=== PATIENT | female | born 1965 | race Caucasian/White ===

== ENCOUNTER 2016-07-03 16:02 | Emergency (ER) | payer MEDICARE, OTHER ==
[2016-07-03 16:44] VITALS: BP 139/92
[2016-07-03] MEDS ORDERED: NAPROXEN 250 MG TABLET PO ONE (19:25)
--- NOTE | 2016-07-03 19:27 | ER Document Report ---
HPI - HPI Patient complains to provider of: left wrist pain Onset: Other - 10 days Onset/Duration: Persistent Quality of pain: Sharp Pain Level: 4 Context: Patient complains of dorsal left wrist pain for the past 10 days that is worse with flexion or extension of wrist. Patient is able to supinate and pronate wrist without pain. Patient states pain radiates into her left thumb, second and third fingers. Patient denies any injury. Patient is right-hand dominant. Patient saw her primary doctor about this last week and has a appointment with her orthopedic doctor on 07/17/2016. Associated Symptoms: Other - Left wrist and hand pain. denies: Fever Exacerbated by: Movement Relieved by: Denies Similar symptoms previously: No Recently seen / treated by doctor: Yes - ROS ROS below otherwise negative: Yes Systems Reviewed and Negative: Yes All other systems reviewed and negative - DERM Skin Color: Normal Past Medical History - General Information source: Patient - Social History Smoking Status: Current Every Day Smoker Drug Abuse: None Occupation: none Family History: Arthritis, CVA, DM, Hyperlipidemia, Hypertension, Malignancy, Thyroid Disfunction Patient has suicidal ideation: No Patient has homicidal ideation: No - Medical History Medical History: Other - Chronic regional pain syndrome - Past Medical History Cardiac Medical History: Reports: Hx Hypertension Pulmonary Medical History: Reports: Hx Bronchitis, Hx Pneumonia Neurological Medical History: Reports: Hx Migraine Renal/ Medical History: Reports: Hx Kidney Stones. Denies: Hx Peritoneal Dialysis Musculoskeltal Medical History: Reports Hx Musculoskeletal Deformity, Reports Hx Musculoskeletal Trauma, Reports Other - Thoracic outlet syndrome Traumatic Medical History: Reports: Hx Fractures - Finger, Hx Pneumothorax - During surgery Past Surgical History: Reports: Hx Hysterectomy, Hx Orthopedic Surgery - Spinal fusion cervical, discectomy L5-S1, Other - Removal of muscle ribs due to thoracic outlet syndrome chest tube - Immunizations Immunizations up to date: Yes Hx Diphtheria, Pertussis, Tetanus Vaccination: Yes Vertical Provider Document - CONSTITUTIONAL Agree With Documented VS: Yes Exam Limitations: No Limitations General Appearance: WD/WN, No Apparent Distress - INFECTION CONTROL TRAVEL OUTSIDE OF THE [place] IN LAST 30 DAYS: No - HEENT HEENT: Atraumatic, Normocephalic - NECK Neck: Normal Inspection, Supple, Other - No cervical midline tenderness, step- off or deformity - RESPIRATORY Respiratory: Breath Sounds Normal, No Respiratory Distress, Chest Non-Tender O2 Sat by Pulse Oximetry: 100 - CARDIOVASCULAR Cardiovascular: Regular Rate, Regular Rhythm, No Murmur Pulses: Normal: Radial - BACK Back: Normal Inspection - MUSCULOSKELETAL/EXTREMETIES Musculoskeletal/Extremeties: MAEW, Tender - Left dorsal wrist tenderness over renal aspect of wrist. Small area of edema, normal skin color and temperature overlying joint. Pain reproduced with flexion and extension of wrist. No tendon deficit, no concern for tenosynovitis, Edema. negative: Eccymosis - NEURO Level of Consciousness: Awake, Alert, Appropriate Motor/Sensory: No Motor Deficit, No Sensory Deficit - DERM Integumentary: Warm, Dry, No Rash Course - Re-evaluation Re-evalutation: 07/03/16 19:[address] Ford . Patient presentation and management. Does not recommend any additional studies at this time, recommends NSAIDs immobilization and planned follow-up with orthopedic doctor. - Vital Signs Vital signs: Temp Pulse Resp BP Pulse Ox 98.4 F 96 18 139/92 H 100 07/03/16 16:42 07/03/16 16:42 07/03/16 16:42 07/03/16 16:42 07/03/16 16:42 Discharge - Discharge Clinical Impression: Wrist pain, left, Tendonitis, Hand pain, left Condition: Stable Disposition: HOME, SELF-CARE Instructions: Tendonitis ([facility]), Anti-Inflammatory Medication ([facility]) Additional Instructions: Return immediately for any new or worsening symptoms Followup with your primary care provider, call tomorrow to make a followup appointment Continue to wear your splint her symptoms Follow-up with your orthopedic doctor as planned Prescriptions: Naproxen [Naprosyn 250 Nmg Tablet] 1 tab PO BID #14 tablet Referrals: JORDAN GUERRERO MD [Primary Care Provider] - Follow up as needed
== END 2016-07-03 19:32 | disposition home or self-care (01) ==
LOC: ER 16:02
DX: M77.9 Enthesopathy, unspecified (principal); M25.532 Pain in left wrist; M79.642 Pain in left hand; F17.200 Nicotine dependence, unspecified, uncomplicated; I10 Essential (primary) hypertension
CPT/HCPCS: 99283; A9270

== ENCOUNTER 2016-08-07 18:29 | Emergency (ER) | payer MEDICARE, OTHER ==
[2016-08-07] MEDS ORDERED: DIPH/PERTUSS(ACELL)/TETANUS VAC/PF 0.5 ML SYR (>=10YO) IM ONE (19:14)
--- NOTE | 2016-08-07 19:20 | ER Document Report ---
HPI - HPI Patient complains to provider of: bilateral zuñiga pain Onset: Just prior to arrival Onset/Duration: Sudden Quality of pain: Achy Severity: Moderate Pain Level: 3 Context: Patient presents to the emergency department with complaints of bilateral zuñiga pain. Patient reports she fell off of a trailer step and slammed her zuñiga. She reports pain when she is walking. Reports left is worse than right. Tetanus is not up-to-date. Associated Symptoms: None Exacerbated by: Walking Relieved by: Denies Similar symptoms previously: No Recently seen / treated by doctor: No - DERM Skin Color: Normal Past Medical History - General Information source: Patient Last Menstrual Period: hyst - Social History Smoking Status: Current Every Day Smoker Cigarette use (# per day): Yes Frequency of alcohol use: None Drug Abuse: None Family History: Arthritis, CVA, DM, Hyperlipidemia, Hypertension, Malignancy, Thyroid Disfunction Patient has suicidal ideation: No Patient has homicidal ideation: No - Past Medical History Cardiac Medical History: Reports: Hx Hypertension Pulmonary Medical History: Reports: Hx Bronchitis, Hx Pneumonia Neurological Medical History: Reports: Hx Migraine Renal/ Medical History: Reports: Hx Kidney Stones. Denies: Hx Peritoneal Dialysis Musculoskeltal Medical History: Reports Hx Musculoskeletal Deformity, Reports Hx Musculoskeletal Trauma Traumatic Medical History: Reports: Hx Fractures - Finger, Hx Pneumothorax - During surgery Past Surgical History: Reports: Hx Hysterectomy, Hx Orthopedic Surgery - Spinal fusion cervical, discectomy L5-S1, Other - Removal of muscle ribs due to thoracic outlet syndrome chest tube - Immunizations Immunizations up to date: Yes Hx Diphtheria, Pertussis, Tetanus Vaccination: Yes Vertical Provider Document - CONSTITUTIONAL Agree With Documented VS: Yes Exam Limitations: No Limitations General Appearance: WD/WN, No Apparent Distress - INFECTION CONTROL TRAVEL OUTSIDE OF THE [place] IN LAST 30 DAYS: No - HEENT HEENT: Atraumatic, Normocephalic - NECK Neck: Supple - RESPIRATORY Respiratory: No Respiratory Distress O2 Sat by Pulse Oximetry: 98 - CARDIOVASCULAR Cardiovascular: Regular Rate - MUSCULOSKELETAL/EXTREMETIES Musculoskeletal/Extremeties: MAEW, FROM, Tender - bilateral shins ttp, lacerations, skin avulsions noted to both shins, no active bleeding. - NEURO Level of Consciousness: Awake, Alert, Appropriate Motor/Sensory: No Motor Deficit - DERM Integumentary: Warm, Dry Adult Front & Back Diagram: 1 - laceration 2 - skin avulsion Course - Re-evaluation Re-evalutation: 08/07/16 19:18 pt is already taking oxycodone 20 mg QID for chronic thoracic outlet syndrome. She declines pain medication - Vital Signs Vital signs: Temp Pulse Resp BP Pulse Ox 98.4 F 96 16 142/108 H 98 08/07/16 18:32 08/07/16 18:32 08/07/16 18:32 08/07/16 18:32 08/07/16 18:32 - Diagnostic Test Radiology reviewed: Image reviewed, Reports reviewed - Negative bilateral shins Procedures - Immobilization BILATERAL ZUÑIGA Pre-Proc Neuro Vasc Exam: Normal Immobilizer type: Gilbert wrap Performed by: PCT Post-Proc Neuro Vasc Exam: Unchanged from pre-exam - Laceration/Wound Repair Left Leg Wound length (cm): 1 - irregular bilateral zuñiga lac/avulsions Wound's Depth, Shape: Superficial Laceration pre-procedure: Shur-Clens applied Wound Repaired With: Steri-strips Adult Front & Back picture: 1 - BILATERAL ZUÑIGA LACERATION/AVULSION COVERED WITH STERI STRIPS, GILBERT WRAP Discharge - Discharge Clinical Impression: Bilateral zuñiga pain, Elevated blood pressure reading Condition: Stable Disposition: HOME, SELF-CARE Instructions: Tetanus Immunization Given ([facility]), Care of Steri-Strip Closure ( [facility]), Gilbert Wrap ([facility]), Ice Packs ([facility]) Additional Instructions: *You have been treated for bilateral zuñiga pain with skin laceration, avulsion *Take tylenol or ibuprofen as indicated for pain *Monitor the site for signs of infection such as increasing pain, redness, swelling, warmth *Keep the area's clean *Follow up with a primary care provider within one week for recheck *Return to ED for signs of infection, worsening condition, changes, needs Monitor your blood pressure. Your blood pressure was elevated today. This may be because you were anxious, in pain or because you need medication. It is important to follow up with your primary care provider for full evaluation. Forms: Elevated Blood Pressure
--- NOTE | 2016-08-07 20:26 | RADIOLOGY REPORT (SQ) ---
EXAM DESCRIPTION: TIB FIB BILAT 2 VIEWS COMPLETED DATE/TIME: 08/07/2016 7:27 pm REASON FOR STUDY: 35-hit both shins against trailer COMPARISON: None. NUMBER OF VIEWS: 8 views TECHNIQUE: AP and lateral radiographic images acquired of the right and left tibia and fibula to inc lude the knee and ankle in at least one projection. LIMITATIONS: None. FINDINGS: MINERALIZATION: Normal. BONES: No acute fracture or dislocation. No worrisome bone lesions. SOFT TISSUES: No obvious swelling or foreign body. OTHER: No other significant finding. IMPRESSION: No evidence for acute fracture or dislocation. Other findings as noted above TECHNICAL DOCUMENTATION: JOB ID: [id number] 1964 [employer]- All Rights Reserved
[2016-08-07 20:45] VITALS: BP 128/71
== END 2016-08-07 20:45 | disposition home or self-care (01) ==
LOC: ER 18:29
DX: S81.812A Laceration without foreign body, left lower leg, initial encounter (principal); S81.801A Unspecified open wound, right lower leg, initial encounter; M79.662 Pain in left lower leg; M79.661 Pain in right lower leg; W10.8XXA Fall (on) (from) other stairs and steps, initial encounter; F17.210 Nicotine dependence, cigarettes, uncomplicated; I10 Essential (primary) hypertension; G54.0 Brachial plexus disorders; Z79.891 Long term (current) use of opiate analgesic
CPT/HCPCS: 90471; 90715; 99283

== ENCOUNTER 2016-11-30 21:36 | Emergency (ER) | payer MEDICARE, OTHER ==
[2016-11-30 23:21] LABS: APPEARANCE,URINE CLEAR; BILIRUBIN,URINE NEGATIVE (NEGATIVE); GLUCOSE, URINE NEGATIVE (NEGATIVE); KETONES,URINE NEGATIVE (NEGATIVE); LEUKOCYTE ESTERASE,URINE NEGATIVE (NEGATIVE); NITRITE,URINE NEGATIVE (NEGATIVE); PROTEIN,URINE NEGATIVE (NEGATIVE); URINE SPECIFIC GRAVITY 1.001; UROBILINOGEN,URINE NEGATIVE mg/dL (<2.0)
[2016-12-01 01:24] LABS: ABSOLUTE BASOPHILS # (AUTO) 0.1 10^3/uL (0.0-0.2); ABSOLUTE EOSINOPHILS # (AUTO) 0.3 10^3/uL (0.0-0.6); ABSOLUTE LYMPHOCYTES (AUTO) 2.5 10^3/uL (0.5-4.7); ABSOLUTE MONOCYTES (AUTO) 0.7 10^3/uL (0.1-1.4); ABSOLUTE NEUT (AUTO) 6.5 10^3/uL (1.7-8.2); HEMATOCRIT 41.3 % (36.0-47.0); HEMOGLOBIN 14.2 g/dL (12.0-15.5); HGB HCT DIFFERENCE 1.3; LYMPHOCYTES % (AUTO) 24.7 % (13-45); MEAN CORPUSCULAR HGB CONC 34.3 g/dL (32.0-36.0); MEAN CORPUSCULAR VOLUME 90 fl (80-97); MONOCYTES % (AUTO) 6.8 % (3-13); RED BLOOD COUNT 4.57 10^6/uL (3.72-5.28); RED CELL DISTRIBUTION WIDTH 13.8 % (11.5-14.0); SEGMENTED NEUTROPHILS % (AUTO) 64.5 % (42-78); WHITE BLOOD COUNT 10.1 10^3/uL (4.0-10.5)
[2016-12-01 01:36] LABS: ALANINE AMINOTRANSFERASE 39 U/L (9-52); ALBUMIN 4.7 g/dL (3.5-5.0); ALKALINE PHOSPHATASE 82 U/L (38-126); ANION GAP 12 (5-19); ASPARTATE AMINO TRANSFERASE 24 U/L (14-36); BILIRUBIN,DIRECT 0.3 mg/dL (0.0-0.4); BILIRUBIN,TOTAL 0.4 mg/dL (0.2-1.3); BLOOD UREA NITROGEN 9 mg/dL (7-20); CALCIUM 10.2 mg/dL (8.4-10.2); CARBON DIOXIDE 24 mmol/L (22-30); CHLORIDE 107 mmol/L (98-107); CREATININE RESULT 0.71 mg/dL (0.52-1.25); GLUCOSE 104 mg/dL (75-110); LIPASE 228.8 U/L (23-300); POTASSIUM 4.4 mmol/L (3.6-5.0); SODIUM 142.9 mmol/L (137-145); TOTAL PROTEIN 7.6 g/dL (6.3-8.2)
--- NOTE | 2016-12-01 03:23 | RADIOLOGY REPORT (SQ) ---
EXAM DESCRIPTION: U/S ABDOMEN LIMITED W/O DOP COMPLETED DATE/TIME: 12/01/2016 2:34 am REASON FOR STUDY: ruq pain COMPARISON: None. TECHNIQUE: Dynamic and static grayscale images acquired of the abdomen and recorded on PACS. Additio nal selected color Doppler and spectral images recorded. LIMITATIONS: None. FINDINGS: PANCREAS: No masses. Visualized pancreatic duct normal caliber. LIVER: No masses. Echotexture normal. LIVER VASCULATURE: Normal directional flow of the main portal vein and hepatic veins. GALLBLADDER: Gallstone(s) and sludge. No pericholecystic fluid. No wall thickening. ULTRASOUND-DETECTED TAVERAS'S SIGN: Negative. INTRAHEPATIC DUCTS AND COMMON DUCT: 1.0 cm diameter common duct. Intrahepatic ducts normal caliber. No filling defects. INFERIOR VENA CAVA: Normal flow. AORTA: Partially obscured. RIGHT KIDNEY: Normal size. Normal echogenicity. No solid or suspicious masses. No hydronephrosis. No calcifications. PERITONEAL AND RIGHT PLEURAL SPACE: No ascites or effusions. OTHER: No other significant findings. IMPRESSION: Nonspecific dilation of the common duct measures 1.0 cm in diameter ; no evidence of int rahepatic ductal dilation. Cholelithiasis. Negative sonographic Taveras's test. TECHNICAL DOCUMENTATION: JOB ID: [id number] [employer]- All Rights Reserved
[2016-12-01] MEDS ORDERED: HYDROCODONE/ACETAMINOPHEN 5-325 MG 6 TAB/DSPK PO PRN (03:42)
[2016-12-01] MEDS ORDERED: LIDOCAINE 5% (700 MG) TRANSDERMAL ADH..PATCH TP ONE (03:42)
--- NOTE | 2016-12-01 03:43 | ER Document Report ---
ED General - General Chief Complaint: Epigastric Pain Stated Complaint: FLANK PAIN Time Seen by Provider: 12/01/16 00:44 Notes: Patient is a 51-year-old female without past medical history who presents with 2 days of right upper quadrant and epigastric abdominal pain. Does describe this as a constant, dull, aching pain that is worsened by movement and eating. States that she has had a poor appetite today. Denies any history of similar symptoms in the past. Nothing has improved the pain. She has not seen a primary doctor regarding today's concerns. She has been nauseated but has not had any vomiting. Denies any fever or constitutional symptoms. Denies any known trauma to the area. She has no prior history of abdominal surgeries. No history of atrial fibrillation or vascular disease. TRAVEL OUTSIDE OF THE [place] IN LAST 30 DAYS: No - Related Data Allergies/Adverse Reactions: hydromorphone [From Dilaudid] Allergy (Verified 08/07/16 18:32) Sulfa (Sulfonamide Antibiotics) Allergy (Verified 08/07/16 18:32) Past Medical History - General Information source: Patient - Social History Smoking Status: Current Every Day Smoker Chew tobacco use (# tins/day): No Frequency of alcohol use: None Drug Abuse: None Lives with: Family Family History: Arthritis, CVA, DM, Hyperlipidemia, Hypertension, Malignancy, Thyroid Disfunction Patient has suicidal ideation: No Patient has homicidal ideation: No - Past Medical History Cardiac Medical History: Reports: Hx Hypertension Pulmonary Medical History: Reports: Hx Bronchitis, Hx Pneumonia Neurological Medical History: Reports: Hx Migraine Renal/ Medical History: Reports: Hx Kidney Stones. Denies: Hx Peritoneal Dialysis Musculoskeltal Medical History: Reports Hx Musculoskeletal Deformity, Reports Hx Musculoskeletal Trauma Traumatic Medical History: Reports: Hx Fractures - Finger, Hx Pneumothorax - During surgery Past Surgical History: Reports: Hx Hysterectomy, Hx Orthopedic Surgery - Spinal fusion cervical, discectomy L5-S1, Other - Removal of muscle ribs due to thoracic outlet syndrome chest tube - Immunizations Immunizations up to date: Yes Hx Diphtheria, Pertussis, Tetanus Vaccination: Yes Review of Systems - Review of Systems Notes: Constitutional: Negative for fever. HENT: Negative for sore throat. Eyes: Negative for visual changes. Cardiovascular: Negative for chest pain. Respiratory: Negative for shortness of breath. Gastrointestinal: Positive for abdominal pain and nausea Genitourinary: Negative for dysuria. Musculoskeletal: Negative for back pain. Skin: Negative for rash. Neurological: Negative for headaches, weakness or numbness. 10 point ROS negative except as marked above and in HPI. Physical Exam - Vital signs Vitals: Temp Pulse Resp BP Pulse Ox 98.8 F 109 H 20 143/95 H 98 11/30/16 22:32 11/30/16 22:32 11/30/16 22:32 11/30/16 22:32 11/30/16 22:32 Tachycardia is resolved at the time of my assessment with the rate at 92. Notes: PHYSICAL EXAMINATION: GENERAL: Appears moderately uncomfortable but no acute distress HEAD: Atraumatic, normocephalic. EYES: Pupils equal round and reactive to light, extraocular movements intact, sclera anicteric, conjunctiva are normal. ENT: nares patent, oropharynx clear without exudates. Moist mucous membranes. NECK: Normal range of motion, supple without lymphadenopathy LUNGS: Breath sounds clear to auscultation bilaterally and equal. No wheezes rales or rhonchi. HEART: Regular rate and rhythm without murmurs ABDOMEN: Soft, mild upper quadrant abdominal tenderness to palpation otherwise no focal abdominal tenderness, normoactive bowel sounds. No guarding, no rebound. No masses appreciated. EXTREMITIES: Normal range of motion, no pitting or edema. No cyanosis. NEUROLOGICAL: No focal neurological deficits. Moves all extremities spontaneously and on command. PSYCH: Normal mood, normal affect. SKIN: Warm, Dry, normal turgor, no rashes or lesions noted. Course - Re-evaluation Re-evalutation: 12/01/16 03:41 Patient presents clinical history and exam most consistent with symptomatic cholelithiasis. Patient has had progressive worsening of right upper quadrant pain worsened by eating but has been able to tolerate some oral intake. Vitals at time of arrival and on multiple reassessments remain non-concerning. Laboratories do not demonstrate a significant leukocytosis, LFT derangements, elevated bilirubin, alkaline phosphatase, or an elevated lipase. A right upper quadrant ultrasound does not demonstrate evidence of acute cholecystitis. Patient is able to tolerate oral intake. Based on exam and history do not suspect an acute pulmonary embolus, bowel obstruction, mesenteric ischemia, bowel perforation, ACS, or any acute alternative life-threatening pathology. at this time will discharge with return precautions and follow-up recommendations. Verbal discharge instructions given a the bedside and opportunity for questions given. Medication warnings reviewed. Patient is in agreement with this plan and has verbalized understanding of return precautions and the need for primary care follow-up in the next 24-72 hours. 12/01/16 03:41 - Vital Signs Vital signs: Temp Pulse Resp BP Pulse Ox 98.8 F 90 18 153/91 H 98 11/30/16 22:32 12/01/16 01:54 12/01/16 01:54 12/01/16 01:54 12/01/16 01:54 - Laboratory Result Diagrams: 12/01/16 01:13 12/01/16 01:13 - Diagnostic Test Radiology reviewed: Reports reviewed Discharge - Discharge Clinical Impression: Right upper quadrant abdominal pain Condition: Good Disposition: HOME, SELF-CARE Additional Instructions: You have gallstones that are causing your symptoms. Be sure to avoid fat containing foods until you follow-up with a surgeon to have the gallbladder removed as eating these foods will trigger your pain. Please return to the emergency department if you develop a fever greater than 100.4F, persistent vomiting, worsening of your pain, or any other symptoms that are worrisome to you. Referrals: KUMAR JANE MD [ACTIVE STAFF] - Follow up tomorrow
[2016-12-01] MEDS ORDERED: LIDOCAINE 2% VISCOUS SOLN 20 ML UDCUP PO ONE (03:48)
[2016-12-01] MEDS ORDERED: METOCLOPRAMIDE HCL ORAL SOLN 10 MG/10 ML UDCUP PO ONE (03:48)
[2016-12-01] MEDS ORDERED: MAG HYDROX/AL HYDROX/SIMETH SUSP 30 ML UDCUP PO ONE (03:48)
[2016-12-01 04:42] VITALS: BP 134/73
== END 2016-12-01 04:41 | disposition home or self-care (01) ==
LOC: ER 21:36
DX: R10.13 Epigastric pain (principal); R10.11 Right upper quadrant pain; F17.200 Nicotine dependence, unspecified, uncomplicated; I10 Essential (primary) hypertension; Z88.6 Allergy status to analgesic agent; Z88.2 Allergy status to sulfonamides; Z87.442 Personal history of urinary calculi; Z90.710 Acquired absence of both cervix and uterus; Z98.1 Arthrodesis status
CPT/HCPCS: 99284; 36415; 83690; 85025; 80053; 81001; 76705; J3490; A9270 ×2

== ENCOUNTER 2016-12-03 13:49 | Inpatient (IN) | payer MEDICARE, OTHER ==
[2016-12-03] MEDS ORDERED: ONDANSETRON HCL INJ/PF 4 MG/2 ML SDV IV ONE ×2 (14:07→15:32)
[2016-12-03] MEDS ORDERED: MORPHINE SULFATE 10 MG/ML INJ IV ONE ×3 (14:07→19:24)
--- NOTE | 2016-12-03 14:09 | ER Document Report ---
ED Medical Screen (RME) - General Chief Complaint: Abdominal Pain Stated Complaint: STOMACH PAIN Time Seen by Provider: 12/03/16 14:00 Mode of Arrival: Wheelchair Information source: Patient TRAVEL OUTSIDE OF THE [place] IN LAST 30 DAYS: No - HPI Patient complains to provider of: Abdominal pain Notes: 12/03/16 14:08 51-year-old female presents to the emergency room today complaining of upper abdominal pain that has been worsening over the past 4-5 days, she reports she was previously seen in this department and diagnosed with gallstones, she has an outpatient follow-up with the surgeon on Sunday, however her pain worsened significantly, she is unable to tolerate any p.o. intake, has not moved her bowels in at least 4-5 days as well - Related Data Allergies/Adverse Reactions: hydromorphone [From Dilaudid] Allergy (Verified 12/03/16 13:57) Sulfa (Sulfonamide Antibiotics) Allergy (Verified 12/03/16 13:57) Past Medical History - Social History Chew tobacco use (# tins/day): No Frequency of alcohol use: None Drug Abuse: None - Past Medical History Cardiac Medical History: Reports: Hx Hypertension Pulmonary Medical History: Reports: Hx Bronchitis, Hx Pneumonia Neurological Medical History: Reports: Hx Migraine Renal/ Medical History: Reports: Hx Kidney Stones. Denies: Hx Peritoneal Dialysis Musculoskeltal Medical History: Reports Hx Musculoskeletal Deformity, Reports Hx Musculoskeletal Trauma Traumatic Medical History: Reports: Hx Fractures - Finger, Hx Pneumothorax - During surgery Past Surgical History: Reports: Hx Hysterectomy, Hx Orthopedic Surgery - Spinal fusion cervical, discectomy L5-S1, Other - Removal of muscle ribs due to thoracic outlet syndrome chest tube - Immunizations Immunizations up to date: Yes Hx Diphtheria, Pertussis, Tetanus Vaccination: Yes Physical Exam - Vital signs Vitals: Temp Pulse Resp BP Pulse Ox 97.5 F 124 H 20 139/92 H 100 12/03/16 13:52 12/03/16 13:52 12/03/16 13:52 12/03/16 13:52 12/03/16 13:52 Course - Vital Signs Vital signs: Temp Pulse Resp BP Pulse Ox 97.5 F 124 H 20 139/92 H 100 12/03/16 13:52 12/03/16 13:52 12/03/16 13:52 12/03/16 13:52 12/03/16 13:52
[2016-12-03] MEDS: NORMAL SALINE 1000 ML 1,000 ML IV PRN ×2 (14:49→19:49)
[2016-12-03 15:10] LABS: ABSOLUTE BASOPHILS # (AUTO) 0.1 10^3/uL (0.0-0.2); ABSOLUTE EOSINOPHILS # (AUTO) 0.1 10^3/uL (0.0-0.6); ABSOLUTE LYMPHOCYTES (AUTO) 2.3 10^3/uL (0.5-4.7); ABSOLUTE MONOCYTES (AUTO) 0.8 10^3/uL (0.1-1.4); ABSOLUTE NEUT (AUTO) 8.9 10^3/uL (1.7-8.2); EOSINOPHILS % (AUTO) 1.2 % (0-6); HEMATOCRIT 46.4 % (36.0-47.0); HGB HCT DIFFERENCE 2.5; LYMPHOCYTES % (AUTO) 18.7 % (13-45); MEAN CORPUSCULAR HEMOGLOBIN 31.6 pg (27.0-33.4); MEAN CORPUSCULAR HGB CONC 35.1 g/dL (32.0-36.0); MEAN CORPUSCULAR VOLUME 90 fl (80-97); MONOCYTES % (AUTO) 6.6 % (3-13); RED BLOOD COUNT 5.14 10^6/uL (3.72-5.28); RED CELL DISTRIBUTION WIDTH 13.4 % (11.5-14.0); SEGMENTED NEUTROPHILS % (AUTO) 72.5 % (42-78); WHITE BLOOD COUNT 12.2 10^3/uL (4.0-10.5)
[2016-12-03 15:13] LABS: APPEARANCE,URINE SLIGHTLY-CLOUDY; BILIRUBIN,URINE NEGATIVE (NEGATIVE); GLUCOSE, URINE NEGATIVE (NEGATIVE); KETONES,URINE NEGATIVE (NEGATIVE); LEUKOCYTE ESTERASE,URINE NEGATIVE (NEGATIVE); NITRITE,URINE NEGATIVE (NEGATIVE); PROTEIN,URINE 30 mg/dL (NEGATIVE); URINE SPECIFIC GRAVITY 1.025; UROBILINOGEN,URINE NEGATIVE mg/dL (<2.0)
[2016-12-03 15:17] LABS: WBC,URINE RARE /HPF
--- NOTE | 2016-12-03 15:31 | ER Document Report ---
ED GI/ - General Mode of Arrival: Wheelchair Information source: Patient TRAVEL OUTSIDE OF THE [place] IN LAST 30 DAYS: No <JOSIAH PARRY - Last Filed: 12/03/16 15:42> <BEBETO MEDINA - Last Filed: 12/03/16 21:47> - General Chief Complaint: Abdominal Pain Stated Complaint: STOMACH PAIN Time Seen by Provider: 12/03/16 14:00 Notes: Patient is a 51 year old female presenting to the emergency department for abdominal pain and nausea since Sunday. Patient's last bowel movement was on Sunday11/27/2016. Patient states her pain has worsened. Patient also has had a lack of appetite. Patient's pain is located in her right upper quadrant and radiates across to the left side and down into her pelvic region. Patient states she took 2 suppositories with no relief. Patient was seen in the emergency department around 2:00 on 12/01/2016 for abdominal pain. At this time she had a soft abdomen that was mildly tender. Patient's ultrasound from this visit showed "Nonspecific dilation of the common duct measuring 1 cm in diameter; no evidence of intrahepatic ductal dilation. Cholelithiasis. Negative sonographic Taveras's test." Patient also had gallstones seen on a previous CT scan in the EMR. Patient received a Lidoderm patch, GI cocktail and [place] dispense pack while she was seen on 12/01/2018. Patient has a follow up appointment with a GI surgeon on Sunday. (JOSIAH PARRY) - Related Data Allergies/Adverse Reactions: hydromorphone [From Dilaudid] Allergy (Verified 12/03/16 13:57) Sulfa (Sulfonamide Antibiotics) Allergy (Verified 12/03/16 13:57) Past Medical History - General Information source: Patient - Social History Smoking Status: Current Every Day Smoker Chew tobacco use (# tins/day): No Smoking Education Provided: No Frequency of alcohol use: None Drug Abuse: None Family History: Arthritis, CVA, DM, Hyperlipidemia, Hypertension, Malignancy, Thyroid Disfunction Patient has suicidal ideation: No Patient has homicidal ideation: No - Past Medical History Cardiac Medical History: Reports: Hx Hypertension Pulmonary Medical History: Reports: Hx Bronchitis, Hx Pneumonia Neurological Medical History: Reports: Hx Migraine Renal/ Medical History: Reports: Hx Kidney Stones GI Medical History: Reports: Other - gallstones Musculoskeltal Medical History: Reports Hx Musculoskeletal Deformity, Reports Hx Musculoskeletal Trauma Traumatic Medical History: Reports: Hx Fractures - Finger, Hx Pneumothorax - During surgery Past Surgical History: Reports: Hx Hysterectomy, Hx Orthopedic Surgery - Spinal fusion cervical, discectomy L5-S1, Other - Removal of muscle ribs due to thoracic outlet syndrome chest tube - Immunizations Immunizations up to date: Yes Hx Diphtheria, Pertussis, Tetanus Vaccination: Yes <JOSIAH PARRY - Last Filed: 12/03/16 15:42> Review of Systems - Review of Systems Constitutional: No symptoms reported EENT: No symptoms reported Cardiovascular: No symptoms reported Respiratory: No symptoms reported Gastrointestinal: See HPI, Abdominal pain, Nausea, Constipation, Poor appetite, Poor fluid intake, Last bowel movement - 11/27/2016 Genitourinary: No symptoms reported Female Genitourinary: No symptoms reported Musculoskeletal: No symptoms reported Skin: No symptoms reported Hematologic/Lymphatic: No symptoms reported Neurological/Psychological: No symptoms reported -: Yes All other systems reviewed and negative <SOHANJOSIAH - Last Filed: 12/03/16 15:42> Physical Exam - Vital signs Interpretation: Normal <JOSIAH PARRY - Last Filed: 12/03/16 15:42> <BEBETO MEDINA - Last Filed: 12/03/16 21:47> - Vital signs Vitals: Temp Pulse Resp BP Pulse Ox 97.5 F 124 H 20 139/92 H 100 12/03/16 13:52 12/03/16 13:52 12/03/16 13:52 12/03/16 13:52 12/03/16 13:52 - Notes Notes: GENERAL: Alert, interacts well, appears uncomfortable. HEAD: Normocephalic, atraumatic. EYES: Appear normal. Pupils equal, round, and reactive to light. ENT: Moist mucus membranes, tongue midline. NECK: Full range of motion. Supple. Trachea midline. LUNGS: Clear to auscultation bilaterally, no wheezes, rales, or rhonchi. No respiratory distress. HEART: Regular rate and rhythm. No murmurs, gallops, or rubs. ABDOMEN: Soft, tenderness to palpate the right upper quadrant extending across to the left side and down towards the pelvic region. Non-distended. Normal bowel sounds. EXTREMITIES: Moves all 4 extremities spontaneously. Normal strength. No edema. NEUROLOGICAL: Alert and oriented x3. Normal speech. No focal neurological deficits. GCS 15. PSYCH: Normal affect, normal mood. SKIN: Warm, dry, normal turgor. No rashes or lesions noted. (JOSIAH PARRY) Course - Laboratory Result Diagrams: 12/03/16 14:37 12/03/16 14:37 <JOSIAH PARRY - Last Filed: 12/03/16 15:42> - Laboratory Result Diagrams: 12/03/16 14:37 12/03/16 15:50 - Diagnostic Test Radiology reviewed: Image reviewed, Reports reviewed - Acute abdominal series shows moderate constipation in the descending colon and splenic flexure. Gallbladder ultrasound shows gallstones, some gallbladder wall thickening now at 4 mm, trace pericholecystic fluid, positive Taveras's sign. This suggests that she is developing cholecystitis. - Consults Dr. Gonsalez Time consulted: 21:15 Consulted provider: will come to ER <BEBETO MEDINA - Last Filed: 12/03/16 21:47> - Re-evaluation Re-evalutation: 12/03/16 19:54 The patient was given an enema at her request. It really did not produce results, which I did not expect given that her constipation is in the right colon and splenic flexure region. (BEBETO MEDINA) - Vital Signs Vital signs: Temp Pulse Resp BP Pulse Ox 98.6 F 89 18 137/75 H 96 12/03/16 20:20 12/03/16 20:20 12/03/16 20:20 12/03/16 20:20 12/03/16 20:20 - Laboratory Laboratory results interpreted by me: 12/03/16 12/03/16 14:37 14:37 WBC 12.2 H Hgb 16.3 H D Absolute Neutrophils 8.9 H Urine Protein 30 H Urine Blood SMALL H Discharge <JOSIAH PARRY - Last Filed: 12/03/16 15:42> - Discharge Admitting Provider: Surgicalist Unit Admitted: Surgical Floor <BEBETO MEDINA - Last Filed: 12/03/16 21:47> - Discharge Clinical Impression: Constipation Cholecystitis with cholelithiasis Qualifiers: Cholelithiasis location: gallbladder Cholecystitis acuity: acute Biliary obstruction: without biliary obstruction Qualified Code(s): K80.00 - Calculus of gallbladder with acute cholecystitis without obstruction Chronic pain Qualifiers: Chronic pain type: chronic pain syndrome Qualified Code(s): G89.4 - Chronic pain syndrome Condition: Stable Disposition: ADMITTED INPATIENT Scribe Attestation: 12/03/16 17:27 I personally performed the services described in the documentation, reviewed and edited the documentation which was dictated to the scribe in my presence, and it accurately records my words and actions. (BEBETO MEDINA) Scribe Documentation - Scribe Written by Scribe:: Wilber Hernandez, 12/03/2016 1615 acting as scribe for :: Prosper <JOSIAH PARRY - Last Filed: 12/03/16 15:42>
[2016-12-03 15:32] LABS: HEMOGLOBIN 16.3 g/dL (12.0-15.5)
[2016-12-03] MEDS ORDERED: NORMAL SALINE 1000 ML 1,000 ML IV ONE (15:32)
[2016-12-03] MEDS ORDERED: METOCLOPRAMIDE HCL INJ/PF 10 MG/2 ML SDV IV ONE (15:39)
--- NOTE | 2016-12-03 15:58 | RADIOLOGY REPORT (SQ) ---
EXAM DESCRIPTION: ACUTE ABDOMEN SERIES COMPLETED DATE/TIME: 12/03/2016 3:00 pm REASON FOR STUDY: pain COMPARISON: CT abdomen pelvis 03/02/2016 NUMBER OF VIEWS: Three views. TECHNIQUE: Frontal chest, supine abdomen and upright abdomen radiographic images acquired. LIMITATIONS: None. FINDINGS: CHEST: Lungs clear of infiltrates. FREE AIR: None. No abnormal gas collections. BOWEL GAS PATTERN: Nonobstructive pattern. No dilated loops or air fluid levels. Moderate constipati on with stool in the ascending colon and splenic flexure. CALCIFICATIONS: No suspicious calcifications. HARDWARE: None in the abdomen. SOFT TISSUES: No gross mass or suggestion of organomegaly. BONES: No acute fracture. No worrisome bone lesions. OTHER: No other significant finding. IMPRESSION: NO RADIOGRAPHIC EVIDENCE FOR ACUTE ABDOMINAL DISEASE. Constipation TECHNICAL DOCUMENTATION: JOB ID: [id number] [employer]- All Rights Reserved
[2016-12-03 16:20] LABS: ALANINE AMINOTRANSFERASE 27 U/L (9-52); ALBUMIN 4.3 g/dL (3.5-5.0); ALKALINE PHOSPHATASE 87 U/L (38-126); ANION GAP 8 (5-19); ASPARTATE AMINO TRANSFERASE 17 U/L (14-36); BILIRUBIN,DIRECT 0.3 mg/dL (0.0-0.4); BILIRUBIN,TOTAL 0.5 mg/dL (0.2-1.3); BLOOD UREA NITROGEN 10 mg/dL (7-20); CALCIUM 10.1 mg/dL (8.4-10.2); CARBON DIOXIDE 28 mmol/L (22-30); CHLORIDE 103 mmol/L (98-107); CREATININE RESULT 0.69 mg/dL (0.52-1.25); GLUCOSE 97 mg/dL (75-110); LIPASE 76.3 U/L (23-300); POTASSIUM 4.4 mmol/L (3.6-5.0); SODIUM 139.4 mmol/L (137-145); TOTAL PROTEIN 7.1 g/dL (6.3-8.2)
[2016-12-03] MEDS ORDERED: MAGNESIUM CITRATE 296 ML BOTTLE PO ONE (16:30)
[2016-12-03] MEDS ORDERED: MINERAL OIL 30 ML UDCUP PR ONE (18:19)
--- NOTE | 2016-12-03 21:04 | RADIOLOGY REPORT (SQ) ---
EXAM DESCRIPTION: U/S ABDOMEN LIMITED W/O DOP COMPLETED DATE/TIME: 12/03/2016 8:49 pm REASON FOR STUDY: gallstones, worse pain COMPARISON: 12/01/2016 TECHNIQUE: Dynamic and static grayscale images acquired of the right upper quadrant and recorded on PACS. Additional selected color Doppler and spectral images recorded. LIMITATIONS: Study limited due to acoustical interference from fat or from air in the bowel. FINDINGS: PANCREAS: Parts or all of the pancreas poorly seen secondary to acoustical interference fr om fat or from air in the bowel. LIVER: Echotexture is coarse with increased echogenicity consistent with fatty infiltration. No mass es. LIVER VASCULATURE: Normal directional flow of the main portal vein and hepatic veins. GALLBLADDER: Multiple gall stones. Abnormal wall thickness, 4 mm. Trace pericholecystic fluid. ULTRASOUND-DETECTED ANTHONY'S SIGN: Positive INTRAHEPATIC DUCTS AND COMMON DUCT: CBD and intrahepatic ducts normal caliber. No filling defects. INFERIOR VENA CAVA: Normal flow. AORTA: No aneurysm. RIGHT KIDNEY: Normal size. Normal echogenicity. No solid or suspicious masses. No hydronephros is. No calcifications. PERITONEAL CAVITY AND RIGHT PLEURAL SPACE: No ascites or effusions. OTHER: No other significant finding. IMPRESSION: Multiple gall stones. Abnormal wall thickness, 4 mm. Trace pericholecystic fluid. ULTRASOUND-DETECTED ANTHONY'S SIGN: Positive FATTY LIVER. PANCREAS PARTIALLY OR COMPLETELY OBSCURED. TECHNICAL DOCUMENTATION: JOB ID: [id number] [employer]- All Rights Reserved
[2016-12-03 22:03] LABS: URINE BARBITURATES SCREEN NEGATIVE; URINE METHADONE SCREEN NEGATIVE; URINE OPIATES LOW UNCONFIRMED POSITIVE; URINE PHENCYCLIDINE SCREEN NEGATIVE
[2016-12-03] MEDS ORDERED: ACETAMINOPHEN 325 MG TABLET PO ONE (22:15)
[2016-12-03] MEDS ORDERED: NORMAL SALINE 1000 ML 1,000 ML IV PRN (22:23)
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
[2016-12-03] MEDS ORDERED: CEFAZOLIN 1 GM/D5W RTU 1 GM/50 ML RTUPB IV ONE (22:37)
--- NOTE | 2016-12-03 23:00 | EKG REPORT ---
SEVERITY:- BORDERLINE ECG - SINUS RHYTHM BORDERLINE T ABNORMALITIES, INFERIOR LEADS : Confirmed by: Williams Flores 03-Dec-2016 22:59:37
[2016-12-04] MEDS: ONDANSETRON HCL INJ/PF 4 MG/2 ML SDV IV PRN ×2 (00:08→08:08)
[2016-12-04] MEDS: NORMAL SALINE 1000 ML 1,000 ML IV PRN ×3 (00:08→20:42)
[2016-12-04] MEDS: MORPHINE SULFATE 10 MG/ML INJ IV PRN ×3 (02:30→10:30)
[2016-12-04 04:34] LABS: ABSOLUTE EOSINOPHILS # (AUTO) 0.1 10^3/uL (0.0-0.6); ABSOLUTE LYMPHOCYTES (AUTO) 2.1 10^3/uL (0.5-4.7); ABSOLUTE MONOCYTES (AUTO) 0.9 10^3/uL (0.1-1.4); ABSOLUTE NEUT (AUTO) 5.8 10^3/uL (1.7-8.2); BASOPHILS % (AUTO) 0.3 % (0-2); EOSINOPHILS % (AUTO) 1.4 % (0-6); HEMATOCRIT 38.1 % (36.0-47.0); HGB HCT DIFFERENCE 1.8; LYMPHOCYTES % (AUTO) 23.2 % (13-45); MEAN CORPUSCULAR HEMOGLOBIN 31.7 pg (27.0-33.4); MEAN CORPUSCULAR VOLUME 91 fl (80-97); MONOCYTES % (AUTO) 10.1 % (3-13); RED BLOOD COUNT 4.21 10^6/uL (3.72-5.28); RED CELL DISTRIBUTION WIDTH 13.8 % (11.5-14.0); WHITE BLOOD COUNT 8.9 10^3/uL (4.0-10.5)
[2016-12-04 04:38] LABS: HEMOGLOBIN 13.3 g/dL (12.0-15.5)
[2016-12-04 05:03] LABS: ALANINE AMINOTRANSFERASE 35 U/L (9-52); ALBUMIN 3.8 g/dL (3.5-5.0); ALKALINE PHOSPHATASE 81 U/L (38-126); ANION GAP 6 (5-19); ASPARTATE AMINO TRANSFERASE 17 U/L (14-36); BILIRUBIN,DIRECT 0.4 mg/dL (0.0-0.4); BILIRUBIN,TOTAL 0.5 mg/dL (0.2-1.3); BLOOD UREA NITROGEN 8 mg/dL (7-20); CALCIUM 9.3 mg/dL (8.4-10.2); CARBON DIOXIDE 27 mmol/L (22-30); CHLORIDE 107 mmol/L (98-107); CREATININE RESULT 0.61 mg/dL (0.52-1.25); GLUCOSE 107 mg/dL (75-110); LIPASE 515.4 U/L (23-300); POTASSIUM 4.3 mmol/L (3.6-5.0); SODIUM 140.1 mmol/L (137-145); TOTAL PROTEIN 6.4 g/dL (6.3-8.2)
--- NOTE | 2016-12-04 09:47 | PDOC PROGRESS REPORT ---
Subjective Progress Note for:: 12/04/16 Subjective:: Patient complaining of neck pain and back and abdominal pain. She receives narcotics on a regular basis. She is under pain management. Physical Exam Vital Signs: Temp Pulse Resp BP Pulse Ox 98.9 F 84 16 151/88 H 98 12/04/16 07:58 12/04/16 07:58 12/04/16 07:58 12/04/16 07:58 12/04/16 07:58 Intake & Output 12/03/16 12/04/16 12/05/16 06:59 06:59 06:59 Intake Total 0 Output Total 1500 Balance -1500 Weight 84.3 kg General appearance: PRESENT: mild distress - Has pain wherever she is pressed. GI/Abdominal exam: PRESENT: other - Operative scars consistent with previous panniculectomy. There is diffuse abdominal tenderness localized to the right upper quadrant Results Laboratory Results: 12/04/16 04:15 12/04/16 04:15 12/04/16 12/04/16 12/04/16 04:15 04:15 06:04 WBC 8.9 RBC 4.21 Hgb 13.3 D Hct 38.1 MCV 91 MCH 31.7 MCHC 35.0 RDW 13.8 Plt Count 226 Seg Neutrophils % 65.0 Lymphocytes % 23.2 Monocytes % 10.1 Eosinophils % 1.4 Basophils % 0.3 Absolute Neutrophils 5.8 Absolute Lymphocytes 2.1 Absolute Monocytes 0.9 Absolute Eosinophils 0.1 Absolute Basophils 0.0 Sodium 140.1 Potassium 4.3 Chloride 107 Carbon Dioxide 27 Anion Gap 6 BUN 8 Creatinine 0.61 Est GFR ( Amer) > 60 Est GFR (Non-Af Amer) > 60 Glucose 107 Calcium 9.3 Total Bilirubin 0.5 AST 17 ALT 35 Alkaline Phosphatase 81 Total Protein 6.4 Albumin 3.8 Lipase 515.4 H 515.4 H Impressions: Acute Abdomen Series 12/03/16 14:07 IMPRESSION: NO RADIOGRAPHIC EVIDENCE FOR ACUTE ABDOMINAL DISEASE. Constipation Abdomen Ultrasound 12/03/16 19:54 IMPRESSION: Multiple gall stones. Abnormal wall thickness, 4 mm. Trace pericholecystic fluid. ULTRASOUND-DETECTED ANTHONY'S SIGN: Positive FATTY LIVER. PANCREAS PARTIALLY OR COMPLETELY OBSCURED. Assessment & Plan - Diagnosis (1) Cholecystitis with cholelithiasis Qualifiers: Cholelithiasis location: gallbladder Cholecystitis acuity: acute Biliary obstruction: without biliary obstruction Qualified Code(s): K80.00 - Calculus of gallbladder with acute cholecystitis without obstruction Is this a current diagnosis for this admission?: Yes Plan: On physical examination, history, and the logic profile; slightly elevated lipase of uncertain significance Recommendation 1. We will proceed with laparoscopic cholecystectomy, possible open, 1 hour, [facility], general anesthesia. I reviewed the mechanics of the operation as well as an explanation of the risks benefits and alternatives including bleeding, infection, bile duct injury , need for additional surgery. I believe the patient understands and agrees to proceed 2. Patient may be a candidate for discharge home later today or tomorrow morning
[2016-12-04] MEDS ORDERED: BUPIVACAINE HCL 0.25 % INJ/PF (2.5 MG/1 ML) 30 ML VIAL ONE (10:33)
[2016-12-04] MEDS ORDERED: DEXAMETHASONE SOD PHOSPHATE INJ 4 MG/1 ML VIAL ONE (11:13)
[2016-12-04] MEDS ORDERED: GLYCOPYRROLATE INJ 0.4 MG/2 ML VIAL ONE (11:13)
[2016-12-04] MEDS ORDERED: ONDANSETRON HCL INJ/PF 4 MG/2 ML SDV ONE (11:13)
[2016-12-04] MEDS ORDERED: NEOSTIGMINE METHYLSULFATE 10 MG/10 ML VIAL ONE (11:13)
[2016-12-04] MEDS ORDERED: ROCURONIUM BROMIDE INJ 50 MG/5 ML VIAL IV ONE (11:13)
[2016-12-04] MEDS ORDERED: LIDOCAINE 2% INJ-PF (20 MG/ML) 10 ML AMPUL ONE (11:13)
[2016-12-04] MEDS ORDERED: SUCCINYLCHOLINE CHLORIDE INJ 200 MG/10 ML VIAL ONE (11:13)
[2016-12-04] MEDS ORDERED: MIDAZOLAM 2 MG/2 ML INJ ONE (11:59)
[2016-12-04] MEDS ORDERED: FENTANYL CITRATE INJ/PF 250 MCG/5 ML AMPULE ONE (11:59)
[2016-12-04] MEDS ORDERED: MORPHINE SULFATE 10 MG/ML INJ ONE (12:00)
[2016-12-04] MEDS ORDERED: EPHEDRINE SULFATE INJ 50 MG/1 ML AMPULE ONE (12:00)
[2016-12-04] MEDS ORDERED: ACETAMINOPHEN 100 ML IV ONE (12:00)
[2016-12-04] MEDS ORDERED: IBUPROFEN INJ 800 MG/8 ML VIAL IV ONE (12:00)
[2016-12-04] MEDS ORDERED: PROPOFOL INJ 200 MG/20 ML VIAL IV ONE (12:00)
[2016-12-04] MEDS: CEFAZOLIN 2 GM/D5W RTU 2 GM/50 ML RTUPB IV SCH ×3 (12:15→23:21)
[2016-12-04] MEDS ORDERED: MORPHINE SULFATE 10 MG/ML INJ IV PRN ×2 (12:56→14:43)
[2016-12-04] MEDS ORDERED: DIPHENHYDRAMINE HCL 50 MG/ML VIAL IV PRN (12:56)
[2016-12-04] MEDS ORDERED: FENTANYL CITRATE INJ/PF 100 MCG/2 ML AMPUL IV PRN ×3 (12:56)
[2016-12-04] MEDS ORDERED: PROMETHAZINE HCL INJ 25 MG/1 ML VIAL IV PRN (12:56)
[2016-12-04] MEDS ORDERED: ONDANSETRON HCL INJ/PF 4 MG/2 ML SDV IV PRN ×2 (13:30→14:43)
--- NOTE | 2016-12-04 15:01 | Operative Report ---
Operative Report DATE OF SURGERY: 12/04/16 PREOPERATIVE DIAGNOSIS: Acute cholecystitis and cholelithiasis POSTOPERATIVE DIAGNOSIS: Same OPERATION: 1. Laparoscopic cholecystectomy. 2. Drainage of subhepatic space. 3. Extremely difficult modifier due to complexity, acute inflammation and prolonged operation (excess of 2 hours) SURGEON: KUMAR JANE ANESTHESIA: GA TISSUE REMOVED OR ALTERED: Gallbladder and fragments with stones COMPLICATIONS: None ESTIMATED BLOOD LOSS: 250 cc INTRAOPERATIVE FINDINGS: see below PROCEDURE: Review patient was seen in the preop holding area, informed of the planned procedure taken to the operating room and general anesthesia was induced. Arms were abducted abdomen prepped and draped sterile fashion and instrumentation set up for laparoscopic cholecystectomy. Surgical plan and surgical timeout were conducted The abdominal wall significant for previous abdominoplasty. The umbilicus had been previously relocated to the mid upper abdomen. We initially anesthetized the skin with quarter percent Marcaine above the umbilicus in the subxiphoid and subcostal positions. A vertically oriented incision was made above the umbilicus, an attempt was made to insert Veress needle. Pneumoperitoneum was not successfully generated. Therefore this approach was aborted. Her right upper quadrant stab was made with a knife Veress needle inserted the peritoneal cavity pneumoperitoneum was successfully generated. The Veress needle was removed, 5 mm ports inserted and a 5 mm flexible scope was inserted. Then inspected the abdominal wall centrally and was apparent that the initial insertion of the Veress needle was into the preperitoneal space and distended up the falciform ligament. We placed 3 additional ports were in the sub- xiphoid a third in the far right upper quadrant and one above the umbilicus successfully all under direct visualization without injury to viscera. Findings were significant for an acutely inflamed gallbladder. The gallbladder was markedly distended, and even preischemic at the fundal tip. We aspirated the gallbladder with a large trocar of approximately 30 cc of thick bile. The gallbladder was then grasped from the fundus flecked up of the liver bed. Multiple adhesions between the gallbladder and the gastroduodenal fatty tissue were taken down bluntly. We then placed a second grasper at the fibula and began dissecting out the tapering aspect of the bladder neck. The cystic artery was imaged typical location so it was dissected out nicely, surrounded with right angle clamp, clipped twice proximally once distally divided with scissors. There were extremely dense adhesions now in what would eventually be the triangle of Calot in addition, only apparent sometime later during the operation, was a very thick peel surrounding the gallbladder which was very difficult to separate from both the liver and the gallbladder. Because of this very tough thick fibrotic anatomy, I felt that a top-down approach would be safest. This was then affected by now using a fan retractor. We proceeded with removing the gallbladder from the liver bed over the next hour and a half. This is extremely tedious due to bleeding, poor visualization due to fogging, and a incomplete plane between the gallbladder and the undersurface of the right lobe of the liver. Nonetheless we did move forward successfully to the point that we have the gallbladder suspended solely by the cystic duct and a portion of the previously described peel. Working in a circumferential fashion we actually ended up biting the gallbladder on 2 occasions thereby truncating it from hole to half and then to one third, facilitating the dissection. For the above reasons including increased time, degree of difficulty due to the inflammatory adhesions etc., the extremely difficult modifier is applied Finally we had the third of the gallbladder with its neck and cystic duct suspended in isolation. Photos were taken. We placed 2 loops on the cystic duct, of 0 PDS. One placed approximately 1 placed distally in the cystic duct divided. The gallbladder remnants, and multiple stones which had spilled during the course of the operation were all placed in an Endobag and then brought out of the patient through the supraumbilical port site incision and defect after extension with a Zaira clamp. Specimens were all passed to pathology for permanent analysis We returned the peritoneal cavity checked for bleeding and there was a continuous slow venous ooze which was eventually abated by use of cautery and multiple applications of Surgicel. A large Gallo drain was placed in the recesses of the subhepatic space through 1 of the previously created port site incisions. We level the patient not checked for bleeding and we were felt to chemical issues were controlled. Drain in good position. We checked for any evidence of visceral injury and there was none. Port sites all look good. All ports removed under direct visualization, sponge and counts were correct. Pneumoperitoneum evacuated and supraumbilical incision closed at the fascial level is 0 Vicryl and all incisions closed with 3-0 Vicryl benzoin and Steri- Strips. Drain secured to the skin with 2-0 Prolene suture. Patient tolerated the procedure well, extubated, taken to recovery in stable condition.
[2016-12-04] MEDS: FENTANYL CITRATE INJ/PF 100 MCG/2 ML AMPUL ONE ×2 (15:05→15:10)
[2016-12-05] MEDS: NORMAL SALINE 1000 ML 1,000 ML IV PRN (05:30)
[2016-12-05] MEDS: CEFAZOLIN 2 GM/D5W RTU 2 GM/50 ML RTUPB IV SCH (05:31)
[2016-12-05 08:25] VITALS: BP 120/68
--- NOTE | 2016-12-05 16:00 | PDOC DISCHARGE SUMMARY ---
Discharge Summary (SDC) - Discharge Final Diagnosis: Cholelithiasis Acute cholecystitis Date of Surgery: 12/04/16 Discharge Date: 12/05/16 Condition: Good Forms: Discharge POC-Adult Referrals: [facility] [Provider Group] - 12/19/16 1:00 pm (Please follow up at [facility] on 12/19/16 at 1:00 pm. ) Discharge Diet: Regular Discharge Activity: Balance Activity w/Rest, No Lifting Over 10 Pounds, No Lifting/Push/Pulling Home Care Assistance: None Needed Report the Following to Your Physician Immediately: Shortness of Breath, Vomiting, Increase in Pain, Fever over 101 Degrees, Unusual Bleeding
--- NOTE | 2016-12-15 07:23 | DISCHARGE SUMMARY E ---
Discharge Summary NAME: ELSA TOMAS : 1965 AGE: 51Y ADMITTED: 12/03/2016 DISCHARGED: 12/05/2016 SUMMARY OF HOSPITALIZATION: The patient is a 51-year-old white female admitted to the surgicalist service for acute abdominal pain, nausea and vomiting. She was evaluated and found to have evidence of cholelithiasis. She was kept n.p.o. on IV fluids and taken to the operating room by Dr. Isaac where she underwent laparoscopic cholecystectomy, drainage of subhepatic space. This is an extremely challenging laparoscopic cholecystectomy. She tolerated it well. Postoperatively, she had no complications and her drain was removed. She was started on a diet and this was tolerated well. By the afternoon of the first postoperative day, she was felt to receive maximum benefit from hospitalization and was discharged home. FINAL DIAGNOSIS: Acute hemorrhagic cholecystitis, cholelithiasis status post laparoscopic cholecystectomy by Dr. Isaac. DISPOSITION: The patient will be discharged home in the care of her family. Follow up with Dr. Isaac at [facility] in approximately 1 week. She will resume preoperative medications, diet and activity. Prescription for pain medication provided. DICTATING PHYSICIAN: KUMAR ISAAC M.D. [id number] PHY#: [id number] ID: [id number] JOB#: [id number] ACCT: [id number] cc:Josue LOZADA M.D. >
== END 2016-12-05 11:10 | disposition home or self-care (01) | DRG 419 ==
LOC: ER 13:49 → UNDOADMIN 22:07 → EH 22:07 → 2N 23:35
PROVIDERS: ADMIT Surgery; ATTEND Surgery
PROC: 0W9F0ZZ Drainage of Abdominal Wall, Open Approach (ICD-10-PCS; 2016-12-04)
PROC: 0FT44ZZ Resection of Gallbladder, Percutaneous Endoscopic Approach (ICD-10-PCS; principal; 2016-12-04 12:00)
DX: K80.00 Calculus of gallbladder with acute cholecystitis without obstruction (principal); Z28.21 Immunization not carried out because of patient refusal; I10 Essential (primary) hypertension; G43.909 Migraine, unspecified, not intractable, without status migrainosus; F17.210 Nicotine dependence, cigarettes, uncomplicated; G89.4 Chronic pain syndrome; K59.03 Drug induced constipation; Z90.710 Acquired absence of both cervix and uterus; Z82.61 Family history of arthritis; Z82.3 Family history of stroke; Z83.3 Family history of diabetes mellitus; Z80.9 Family history of malignant neoplasm, unspecified; Z82.49 Family history of ischemic heart disease and other diseases of the circulatory system; Z79.899 Other long term (current) drug therapy; Z88.6 Allergy status to analgesic agent; Z88.2 Allergy status to sulfonamides
CPT/HCPCS: 36415; 74022; 76705; 790; 80053; 80307; 81001; 83690; 85025; 87086; 88304; 93005; 93010; 96361; 96374; 96375; 96376; 99285; J0131; J0330; J0690; J1100; J1741; J2250; J2270; J2405; J2704; J2765; J3010; J3490; J7030

== ENCOUNTER 2017-08-18 19:24 | Emergency (ER) | payer MEDICARE, OTHER ==
--- NOTE | 2017-08-18 21:24 | ER Document Report ---
ED Hand/Wrist Injury - General Chief Complaint: Wrist Injury Stated Complaint: WRIST PAIN Time Seen by Provider: 08/18/17 21:17 Mode of Arrival: Ambulatory Information source: Patient Notes: This is a 52-year-old woman with a history of left wrist surgery who presents with left wrist pain after slipping and falling with the outstretched hand Th night (2 nights ago). Patient has been applying ice and continues to have swelling. TRAVEL OUTSIDE OF THE [place] IN LAST 30 DAYS: No - HPI Injury to: Forearm Onset: Last week Where: [place]doors Timing: Constant Quality of pain: Dull Severity: Moderate Pain Level: 2 - Related Data Allergies/Adverse Reactions: hydromorphone [From Dilaudid] Allergy (Verified 12/03/16 13:57) Sulfa (Sulfonamide Antibiotics) Allergy (Verified 12/03/16 13:57) Past Medical History - General Information source: Patient - Social History Smoking Status: Current Every Day Smoker Cigarette use (# per day): Yes Chew tobacco use (# tins/day): No Frequency of alcohol use: None Drug Abuse: None Lives with: Family Family History: Arthritis, CVA, DM, Hyperlipidemia, Hypertension, Malignancy, Thyroid Disfunction Patient has suicidal ideation: No Patient has homicidal ideation: No - Past Medical History Cardiac Medical History: Reports: Hx Hypertension Pulmonary Medical History: Reports: Hx Bronchitis, Hx Pneumonia Neurological Medical History: Reports: Hx Migraine Renal/ Medical History: Reports: Hx Kidney Stones. Denies: Hx Peritoneal Dialysis Musculoskeltal Medical History: Reports Hx Musculoskeletal Deformity, Reports Hx Musculoskeletal Trauma Traumatic Medical History: Reports: Hx Fractures - Finger, Hx Pneumothorax - During surgery Past Surgical History: Reports: Hx Hysterectomy, Hx Orthopedic Surgery - Spinal fusion cervical, discectomy L5-S1, Other - Removal of muscle ribs due to thoracic outlet syndrome chest tube - Immunizations Immunizations up to date: Yes Hx Diphtheria, Pertussis, Tetanus Vaccination: Yes Review of Systems - Review of Systems Constitutional: denies: Chills, Fever EENT: No symptoms reported Cardiovascular: No symptoms reported Respiratory: No symptoms reported Genitourinary: No symptoms reported Female Genitourinary: No symptoms reported Musculoskeletal: See HPI Skin: No symptoms reported Hematologic/Lymphatic: No symptoms reported Neurological/Psychological: No symptoms reported Physical Exam - Vital signs Vitals: Temp Pulse Resp BP Pulse Ox 99.0 F 104 H 18 144/79 H 99 08/18/17 19:44 08/18/17 19:44 08/18/17 19:44 08/18/17 19:44 08/18/17 19:44 Notes: Left arm Good radial pulse. Patient has old surgical scar over the left wrist dorsally. She has some swelling just proximal to this surgical scar. No obvious deformity. There is tenderness to palpation over the distal wrist Elbow is nontender with full range of motion Shoulder is nontender with full range of motion Course - Vital Signs Vital signs: Temp Pulse Resp BP Pulse Ox 98.0 F 83 16 141/82 H 96 08/18/17 22:43 08/18/17 22:43 08/18/17 22:43 08/18/17 22:43 08/18/17 22:43 - Diagnostic Test Radiology reviewed: Image reviewed, Reports reviewed - Sprays of the wrist and forearm show no bony injury, hardware in place Discharge - Discharge Clinical Impression: Sprain of left wrist Qualifiers: Encounter type: initial encounter Qualified Code(s): S63.502A - Unspecified sprain of left wrist, initial encounter Clinical Impression: (Ruled Out): Left Condition: Stable Disposition: HOME, SELF-CARE Additional Instructions: As we discussed, the x-rays show that the hardware is intact and there is no evidence of bony injury. I would keep the splint on his needed. You can do ice over the injury several times a day. Continue with your medicines. Follow-up with your orthopedic doctor.
--- NOTE | 2017-08-18 22:05 | RADIOLOGY REPORT (SQ) ---
EXAM DESCRIPTION: FOREARM LEFT COMPLETED DATE/TIME: 08/18/2017 9:45 pm REASON FOR STUDY: left forearm pain s/p fall COMPARISON: None. NUMBER OF VIEWS: Two views. TECHNIQUE: Two radiographic images acquired of the left forearm, including elbow and wrist in at [address] one projection. LIMITATIONS: None. 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 BONES: No acute fracture. No worrisome bone lesions. SOFT TISSUES: No obvious swelling or foreign body. OTHER: Plate and screw fixation hardware spans the distal radius to the 3rd metacarpal. There is no evidence of hardware fracture, perihardware lucency or migration. IMPRESSION: Status post wrist fusion without evidence of hardware complication or acute osseous inju ry. TECHNICAL DOCUMENTATION: JOB ID: [id number] [employer]- All Rights Reserved Reading location - IP/workstation name: [email or web address]
--- NOTE | 2017-08-18 22:06 | RADIOLOGY REPORT (SQ) ---
EXAM DESCRIPTION: WRIST LEFT 3 VIEWS COMPLETED DATE/TIME: 08/18/2017 9:45 pm REASON FOR STUDY: left wrist pain s/p fall COMPARISON: None. NUMBER OF VIEWS: Three views. TECHNIQUE: AP, lateral, and oblique radiographic images acquired of the left wrist. LIMITATIONS: None. 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 BONES: No acute fracture or dislocation. No worrisome bone lesions. Normal alignment. SOFT TISSUES: No soft tissue swelling. No foreign body. OTHER: Plate and screw fixation hardware spans the distal radius to the 3rd metacarpal. There is no evidence of hardware fracture, perihardware lucency or migration. IMPRESSION: Status post left wrist fusion. No evidence of hardware complication or acute osseous in jury. TECHNICAL DOCUMENTATION: JOB ID: [id number] [employer]- All Rights Reserved Reading location - IP/workstation name: [email or web address]
[2017-08-18 22:45] VITALS: BP 141/82
== END 2017-08-18 22:40 | disposition home or self-care (01) ==
LOC: ER 19:24
DX: S63.502A Unspecified sprain of left wrist, initial encounter (principal); W01.0XXA Fall on same level from slipping, tripping and stumbling without subsequent striking against object, initial encounter; F17.210 Nicotine dependence, cigarettes, uncomplicated; I10 Essential (primary) hypertension; Z98.1 Arthrodesis status; Z88.5 Allergy status to narcotic agent; Z88.2 Allergy status to sulfonamides
CPT/HCPCS: 99283

== ENCOUNTER 2018-01-17 11:08 | Emergency (ER) | payer MEDICARE, OTHER ==
[2018-01-17] MEDS ORDERED: METHYLPREDNISOLONE ACETATE INJ 80 MG/1 ML VIAL IM ONE (11:39)
[2018-01-17] MEDS ORDERED: BUPIVACAINE HCL 0.75% INJ/PF (7.5 MG/1 ML) 10 ML SDV INJ ONE (11:39)
[2018-01-17] MEDS ORDERED: KETOROLAC TROMETHAMINE 60 MG/2 ML SDV IM ONE (11:39)
[2018-01-17] MEDS ORDERED: DIAZEPAM 5 MG TABLET PO ONE (11:52)
[2018-01-17] MEDS ORDERED: OXYCODONE-ACETAMINOPHEN 5-325 MG TABLET PO ONE (11:52)
--- NOTE | 2018-01-17 13:02 | ER Document Report ---
ED General Pain - General Chief Complaint: Low Back Pain Stated Complaint: BACK PAIN Time Seen by Provider: 01/17/18 11:39 Mode of Arrival: Ambulatory Information source: Patient Notes: History of Present Illness Chief Complaint: [back pain] [ ] History obtained from [patient] 52 years old female with chronic pain syndrome, presents today with sudden onset of right sacroiliac pain radiating to the gluteal region. States that she was trying to hold onto dog that was pulling this morning. Standing is the comfortable position sitting is painful. Denies any weakness over the lower extremity. Symptoms began: [today] Mechanism:[ As above] Onset: [gradual] Timing: [constant] Quality: ["pain"] Intensity: [severe] Location: [lumbar] Radiation:[ none] Migration: [none] Aggravating factors: [movement] Relieving factors: [none] Denies significant traumatic injury Denies weakness, numbness, incontinence Denies IV drug use Review of Systems: All other systems negative as reviewed. CONSTITUTIONAL No fever, No chills. EYES No eye pain. ENT No URI symptoms, No sore throat, No ear pain. CARDIOVASCULAR No chest pain, No palpitations, No edema. RESPIRATORY No Cough, No SOB, No wheezing. GASTROINTESTINAL No abdominal pain, No diarrhea, No vomiting, No constipation, No melena, No rectal bleeding. GENITOURINARY No UTI symptoms, No bleeding. MUSCULOSKELETAL + back pain. SKIN No Rash. NEUROLOGIC No Headache, No recent seizures, No paralysis, No parathesias. Physical Exam CONSTITUTIONAL Vital signs reviewed, comfortable, Alert and oriented X 3. HEAD Atraumatic, Normal cephalic. EYES No discharge from eyes, Sclera are not injected, Extraocular muscles intact, Conjunctiva are normal. ENT Ears normal to inspection, Nose examination normal, Oropharynx normal, Mucous membranes pink, moist, normal in color. NECK Normal ROM, No jugular venous distention, No meningeal signs, No carotid bruit. RESPIRATORY/CHEST Chest is non-tender, Breath sounds normal, No respiratory distress. CARDIOVASCULAR RRR, Heart sounds normal. ABDOMEN Abdomen is non-tender, No masses, Bowel sounds normal, No distension, No peritoneal signs. BACK [ ] Normal inspection. no focal bony tenderness, [bilateral] paraspinal tenderness L2-5, negative straight leg test bilaterally, bilateral 2+ knee deep tendon reflexes. Had tenderness over the right SI joint region UPPER EXTREMITY Inspection normal, No cyanosis/clubbing/edema, 2+ radial pulses. LOWER EXTREMITY Inspection normal, No cyanosis/clubbing/edema, 2+ femoral pulses. NEURO Motor exam normal, Sensory exam normal. SKIN Skin is warm and dry, No rash. PSYCHIATRIC Normal affect. TRAVEL OUTSIDE OF THE [place] IN LAST 30 DAYS: No - HPI Notes: Dictated - Related Data Allergies/Adverse Reactions: hydromorphone [From Dilaudid] Allergy (Verified 01/17/18 11:15) Sulfa (Sulfonamide Antibiotics) Allergy (Verified 01/17/18 11:15) Past Medical History - Social History Smoking Status: Never Smoker Chew tobacco use (# tins/day): No Frequency of alcohol use: Rare Drug Abuse: None Family History: Reviewed & Not Pertinent, Arthritis, CVA, DM, Hyperlipidemia, Hypertension, Malignancy, Thyroid Disfunction Patient has suicidal ideation: No Patient has homicidal ideation: No - Past Medical History Cardiac Medical History: Reports: Hx Hypertension Pulmonary Medical History: Reports: Hx Bronchitis, Hx Pneumonia Neurological Medical History: Reports: Hx Migraine Renal/ Medical History: Reports: Hx Kidney Stones. Denies: Hx Peritoneal Dialysis Musculoskeletal Medical History: Reports Hx Musculoskeletal Deformity, Reports Hx Musculoskeletal Trauma Traumatic Medical History: Reports: Hx Fractures - Finger, Hx Pneumothorax - During surgery Past Surgical History: Reports: Hx Hysterectomy, Hx Orthopedic Surgery - Spinal fusion cervical, discectomy L5-S1, Other - Removal of muscle ribs due to thoracic outlet syndrome chest tube - Immunizations Immunizations up to date: Yes Hx Diphtheria, Pertussis, Tetanus Vaccination: Yes Review of Systems - Review of Systems Notes: Dictated Physical Exam - Vital signs Vitals: Temp Pulse Resp BP Pulse Ox 98.2 F 124 H 18 134/80 H 100 01/17/18 11:19 01/17/18 11:19 01/17/18 11:19 01/17/18 11:19 01/17/18 11:19 - Notes Notes: Dictated Course - Vital Signs Vital signs: Temp Pulse Resp BP Pulse Ox 98.2 F 124 H 18 134/80 H 100 01/17/18 11:19 01/17/18 11:19 01/17/18 11:19 01/17/18 11:19 01/17/18 11:19 Procedures - Additional Procedures Trigger point injection Time performed: 11:50 Notes: 01/17/18 12:59 Under aseptic condition using sterile technique after cleaning with alcohol 80 mg of Depo-Medrol, Toradol 60 mg, Sensorcaine 0. 75% mixed together and injected in the SI joint region without any complications. Patient tolerated the procedure well. Discharge - Discharge Clinical Impression: Acute on chronic lower back pain Condition: Fair Disposition: HOME, SELF-CARE Instructions: Muscle Strain ([facility]), Low Back Pain ([facility]) Prescriptions: Oxycodone HCl/Acetaminophen [Percocet 7.5-325 mg Tablet] 1 each PO Q12HP PRN # 14 tablet PRN Reason: Diazepam [Valium 5 mg Tablet] 5 mg PO BID #10 tablet
[2018-01-17 13:25] VITALS: BP 114/69
== END 2018-01-17 13:25 | disposition home or self-care (01) ==
LOC: ER 11:08
DX: M54.5 Low back pain (principal); G89.4 Chronic pain syndrome; I10 Essential (primary) hypertension; Z90.710 Acquired absence of both cervix and uterus; Z98.1 Arthrodesis status; Z88.6 Allergy status to analgesic agent; Z88.2 Allergy status to sulfonamides; Z87.442 Personal history of urinary calculi
CPT/HCPCS: 99283; 20552; J3490; A9270 ×2; J1885; J1040

== ENCOUNTER → 2018-01-19 | Outpatient (CLI) | payer OTHER ==
--- NOTE | 2018-01-19 18:13 | RADIOLOGY REPORT (SQ) ---
EXAM DESCRIPTION: MRI CERVICAL SPINE WITHOUT COMPLETED DATE/TIME: 01/19/2018 12:14 pm REASON FOR STUDY: LUMBAR RADICULOPATHY, CERVICAL MYELOPATHY M54.16 RADICULOPATHY, LUMBAR REGION COMPARISON: None. TECHNIQUE: Sagittal and Axial imaging includes T1, T2, STIR and gradient echo sequences. LIMITATIONS: None. FINDINGS: ALIGNMENT: Normal. VERTEBRAE: Intact. BONE MARROW: Reactive endplate changes C5-6. DISCS: Loss of height and T2 signal C5-6. HARDWARE: None in the spine. CORD AND BASE OF BRAIN: Normal in size and signal intensity. SOFT TISSUES: No soft tissue masses. C1-C2: No significant spinal stenosis. C2-C3: No significant spinal stenosis or exit foraminal stenosis. C3-C4: No significant spinal stenosis or exit foraminal stenosis. C4-C5: No significant spinal stenosis or exit foraminal stenosis. C5-C6: Diffuse degenerative disc without spinal stenosis or exit foraminal stenosis. C6-C7: Disc osteophyte complex asymmetric left with moderate narrowing of the left exit foramina. C7-T1: No significant spinal stenosis or exit foraminal stenosis. UPPER THORACIC: Incompletely imaged. No significant spinal stenosis or exit foraminal stenosis. OTHER: No other significant finding. IMPRESSION: Diffuse degenerative disc at C5-6. Disc osteophyte complex C6-7 asymmetric left with moderate narrowing of the left exit foramina. TECHNICAL DOCUMENTATION: JOB ID: [id number] [employer]- All Rights Reserved Reading location - IP/workstation name: [email or web address]
--- NOTE | 2018-01-19 18:17 | RADIOLOGY REPORT (SQ) ---
EXAM DESCRIPTION: MRI LUMBAR SPINE WITHOUT COMPLETED DATE/TIME: 01/19/2018 12:14 pm REASON FOR STUDY: LUMBAR RADICULOPATHY, CERVICAL MYELOPATHY M54.16 RADICULOPATHY, LUMBAR REGION COMPARISON: None. TECHNIQUE: Sagittal and Axial imaging includes T1, T2, STIR and gradient echo sequences. Coronal T2/ HASTE imaging. LIMITATIONS: None. FINDINGS: VISUALIZED UPPER ABDOMEN: Limited evaluation. No acute or suspicious findings suggested. SEGMENTATION: No transitional anatomy. The lowest well-developed disc space is labeled L5-S1. ALIGNMENT: Anatomic. VERTEBRAE: Intact. BONE MARROW: Reactive endplate changes L5-S1. DISC SIGNAL: Loss of height and T2 signal L5-S1. Loss of T2 signal L4-5. POSTERIOR ELEMENTS: Generally intact. No pars defect evident. HARDWARE: None in the spine. CORD AND CONUS: Normal in size and signal intensity. Conus at the appropriate level. SOFT TISSUES: No aortic aneurysm seen. No bulky retroperitoneal adenopathy or mass. No paraspinal mas s or fluid. L1-L2: No significant spinal stenosis or exit foraminal stenosis. L2-L3: No significant spinal stenosis or exit foraminal stenosis. L3-L4: No significant spinal stenosis or exit foraminal stenosis. L4-L5: Minimal central disc bulge with fissure. No spinal stenosis or exit foraminal stenosis. L5-S1: Diffuse degenerative disc with disc osteophyte complex. No significant spinal stenosis or exi t foraminal stenosis. LOWER THORACIC: Incompletely imaged. No stenosis seen. SACRUM: Visualized upper sacrum intact. OTHER: No other significant findings. IMPRESSION: Diffuse degenerative disc L5-S1. Small central fissure L4-5. No significant spinal stenosis or exit foraminal stenosis. TECHNICAL DOCUMENTATION: JOB ID: [id number] [employer]- All Rights Reserved Reading location - IP/workstation name: [email or web address]
== END ==
LOC: RAD 10:50
PROVIDERS: ATTEND Orthopaedic Surgery
DX: G95.9 Disease of spinal cord, unspecified (principal)
CPT/HCPCS: 72141; 72148

== ENCOUNTER 2019-12-25 20:07 | Emergency (ER) | payer MEDICARE, OTHER ==
--- NOTE | 2019-12-25 20:58 | ER Document Report ---
ED Medical Screen (RME) - General Stated Complaint: CHEST PAIN Time Seen by Provider: 12/25/19 20:51 TRAVEL OUTSIDE OF THE [place] IN LAST 30 DAYS: No - HPI Notes: 12/25/19 20:56 54-year-old female to the emergency department with complaints of right-sided chest pain that began several days ago with associated lightheadedness, shortness of breath, heart palpitations. She states that every time she gets up and moves around she feels like her heart is racing. She has measured up to 130s. She states she has a history of POTS. She states that she has been feeling really lightheaded. However, she is not been able to eat her normal salt replacement because she has not had much of an appetite and nausea. She states that she did recently get out of a cast from an Achilles tendon rupture in November 06. She states she has been in a walking boot since. She denies any leg swelling. She denies any back pain. Denies any cough, fevers, chills, diarrhea, loss of taste or smell. I performed a brief medical screening exam on the patient determined that the patient needs further evaluation and management by main side provider. I have placed initial orders to help expedite care. - Related Data Allergies/Adverse Reactions: hydromorphone [From Dilaudid] Allergy (Verified 01/17/18 11:15) Sulfa (Sulfonamide Antibiotics) Allergy (Verified 01/17/18 11:15) Past Medical History - Past Medical History Cardiac Medical History: Reports: Hx Hypertension Pulmonary Medical History: Reports: Hx Bronchitis, Hx Pneumonia Neurological Medical History: Reports: Hx Migraine Renal/ Medical History: Reports: Hx Kidney Stones. Denies: Hx Peritoneal Dialysis Musculoskeltal Medical History: Reports Hx Musculoskeletal Deformity, Reports Hx Musculoskeletal Trauma Traumatic Medical History: Reports: Hx Fractures - Finger, Hx Pneumothorax - During surgery Past Surgical History: Reports: Hx Hysterectomy, Hx Orthopedic Surgery - Spinal fusion cervical, discectomy L5-S1, Other - Removal of muscle ribs due to thoracic outlet syndrome chest tube - Immunizations Immunizations up to date: Yes Hx Diphtheria, Pertussis, Tetanus Vaccination: Yes Physical Exam - Vital signs Vitals: Temp Pulse Resp BP Pulse Ox 98.4 F 103 H 12 139/73 H 97 12/25/19 20:38 12/25/19 20:38 12/25/19 20:38 12/25/19 20:38 12/25/19 20:38 Course - Vital Signs Vital signs: Temp Pulse Resp BP Pulse Ox 98.4 F 103 H 12 139/73 H 97 12/25/19 20:38 12/25/19 20:38 12/25/19 20:38 12/25/19 20:38 12/25/19 20:38
[2019-12-25 21:33] LABS: ABSOLUTE BASOPHILS # (AUTO) 0.1 10^3/uL (0.0-0.2); ABSOLUTE EOSINOPHILS # (AUTO) 0.2 10^3/uL (0.0-0.6); ABSOLUTE LYMPHOCYTES (AUTO) 2.8 10^3/uL (0.5-4.7); ABSOLUTE MONOCYTES (AUTO) 0.7 10^3/uL (0.1-1.4); ABSOLUTE NEUT (AUTO) 5.3 10^3/uL (1.7-8.2); BASOPHILS % (AUTO) 0.6 % (0-2); EOSINOPHILS % (AUTO) 1.8 % (0-6); HEMATOCRIT 43.3 % (36.0-47.0); HEMOGLOBIN 15.1 g/dL (12.0-15.5); LYMPHOCYTES % (AUTO) 30.7 % (13-45); MEAN CORPUSCULAR HEMOGLOBIN 30.9 pg (27.0-33.4); MEAN CORPUSCULAR HGB CONC 34.9 g/dL (32.0-36.0); MEAN CORPUSCULAR VOLUME 89 fl (80-97); MONOCYTES % (AUTO) 7.9 % (3-13); PLATELET COUNT 306 10^3/uL (150-450); RED BLOOD COUNT 4.89 10^6/uL (3.72-5.28); RED CELL DISTRIBUTION WIDTH 13.9 % (11.5-14.0); TOTAL CELLS COUNTED % (AUTO) 100 %
[2019-12-25 21:38] LABS: INTERNATIONAL RATION (INR) 0.91; PROTHROMBIN TIME 12.5 SEC (11.4-15.4)
[2019-12-25 21:39] LABS: PARTIAL THROMBOPLASTIN TIME 27.4 SEC (23.5-35.8)
[2019-12-25 21:51] LABS: ALBUMIN 4.6 g/dL (3.5-5.0); ALKALINE PHOSPHATASE 99 U/L (38-126); ANION GAP 9 (5-19); ASPARTATE AMINO TRANSFERASE 19 U/L (14-36); BILIRUBIN,DIRECT 0.3 mg/dL (0.0-0.4); BILIRUBIN,TOTAL 0.4 mg/dL (0.2-1.3); BLOOD UREA NITROGEN 11 mg/dL (7-20); CALCIUM 10.4 mg/dL (8.4-10.2); CARBON DIOXIDE 22 mmol/L (22-30); CHLORIDE 105 mmol/L (98-107); GLUCOSE 104 mg/dL (75-110); POTASSIUM 4.6 mmol/L (3.6-5.0); TOTAL PROTEIN 7.6 g/dL (6.3-8.2)
--- NOTE | 2019-12-25 21:57 | RADIOLOGY REPORT (SQ) ---
XR CHEST 2 VIEWS HISTORY: Right sided chest pain. COMPARISON: None. FINDINGS: The heart size is within normal limits. There is no pulmonary vascular congestion. No consolidation, pleural effusion, or pneumothorax is seen. No acute bony findings are seen. IMPRESSION: No evidence of acute cardiopulmonary disease.
--- NOTE | 2019-12-26 01:05 | ER Document Report ---
Entered by RENETTA ORTIZ SCRIBE 12/26/19 0043 Acting as scribe for:APRIL CONNER, DO ED General - General Chief Complaint: Chest Pain Stated Complaint: CHEST PAIN Time Seen by Provider: 12/25/19 20:51 Primary Care Provider: SANGEETHA MICHAEL PA-C [Primary Care Provider] - Follow up as needed Information source: Patient Notes: This 54 year old female patient with history of POTS and HTN, presents to the emergency department today with complaints of right chest pain. Patient states she is used to chest pain due to history of thoracic outlet syndrome. Patient states this chest pain is different and exacerbated by taking deep breaths or laying on her right side. Patient states her chest pain began the other night and has been constant. Patient reports palpitations, dizziness, and loss of appetite. Patient denies history of CAD or fever, cough, or covid exposure. Patient reports a recent visit with her PCP for lab work to renew prescriptions and has a appointment next week. Patient states she is less dizzy in the ED. TRAVEL OUTSIDE OF THE [place] IN LAST 30 DAYS: No - Related Data Allergies/Adverse Reactions: hydromorphone [From Dilaudid] Allergy (Verified 01/17/18 11:15) Sulfa (Sulfonamide Antibiotics) Allergy (Verified 01/17/18 11:15) Home Medications: gabapentin, pain med, simivastatin, labatolol,dulxacone, Past Medical History - General Information source: Patient - Social History Smoking Status: Current Every Day Smoker Cigarette use (# per day): Yes Family History: Reviewed & Not Pertinent, Arthritis, CVA, DM, Hyperlipidemia, Hypertension, Malignancy, Thyroid Disfunction - Past Medical History Cardiac Medical History: Reports: Hx Hypertension Denies: Hx Coronary Artery Disease Pulmonary Medical History: Reports: Hx Bronchitis, Hx Pneumonia Neurological Medical History: Reports: Hx Migraine Renal/ Medical History: Reports: Hx Kidney Stones. Denies: Hx Peritoneal Wendy lysis Musculoskeletal Medical History: Reports Hx Musculoskeletal Deformity, Reports Hx Musculoskeletal Trauma Traumatic Medical History: Reports: Hx Fractures - Finger, Hx Pneumothorax - During surgery Past Surgical History: Reports: Hx Hysterectomy, Hx Orthopedic Surgery - Spinal fusion cervical, discectomy L5-S1, Other - Removal of muscle ribs due to thoracic outlet syndrome chest tube - Immunizations Immunizations up to date: Yes Hx Diphtheria, Pertussis, Tetanus Vaccination: Yes Review of Systems - Review of Systems Constitutional: See HPI. denies: Fever EENT: No symptoms reported Cardiovascular: See HPI, Chest pain - R, Palpitations, Dizziness Respiratory: See HPI. denies: Cough Gastrointestinal: See HPI, Poor appetite Genitourinary: No symptoms reported Female Genitourinary: No symptoms reported Musculoskeletal: No symptoms reported Skin: No symptoms reported Hematologic/Lymphatic: No symptoms reported Neurological/Psychological: No symptoms reported -: Yes All other systems reviewed and negative Physical Exam - Vital signs Vitals: Temp Pulse Resp BP Pulse Ox 98.4 F 103 H 12 139/73 H 97 12/25/19 20:38 12/25/19 20:38 12/25/19 20:38 12/25/19 20:38 12/25/19 20:38 - General General appearance: Appears well, Alert - HEENT Head: Normocephalic, Atraumatic Eyes: Normal Pupils: PERRL - Respiratory Respiratory status: No respiratory distress Breath sounds: Normal Notes: Tenderness with palpation to the right anterior chest wall. No crepitus. No deformity. - Cardiovascular Rhythm: Regular Heart sounds: Normal auscultation Murmur: No - Abdominal Inspection: Obese - mildly obese Distension: No distension Bowel sounds: Normal Tenderness: Nontender - Extremities General upper extremity: Normal inspection, Normal ROM General lower extremity: Normal inspection, Normal ROM. No: Edema - Neurological Neuro grossly intact: Yes Cognition: Normal Orientation: AAOx4 Elizabeth Coma Scale Eye Opening: Spontaneous Elizabeth Coma Scale Verbal: Oriented Elizabeth Coma Scale Motor: Obeys Commands [place] Coma Scale Total: 15 Speech: Normal Sensory: Normal - Psychological Associated symptoms: Normal affect, Normal mood - Skin Skin Temperature: Warm Skin Moisture: Dry Skin Color: Normal Course - Re-evaluation Re-evalutation: 12/26/19 01:00 MDM 54 year old female arrives with complaints of right sided chest pain for over 24 hours. Pain is sharp and constant and worse with palpation, laying on the right side and taking a deep breath. This pt is a smoker and has known thoracic outlet syndrome and chronic chest pain and shoulder pain. She has been on [facility] narcotics previously for the chronic chest pain and in the last several weeks has been treated for a partial achilles tear in the left achilles tendon. Considered in the differential were cap, acs, pe, ptx and pots exacerbation along with chest wall pain/ costochondritis. She tells me she would not have even come had her pcp not insisted she come and would not see her as a pcp if the pt did not agree to come. - Vital Signs Vital signs: Temp Pulse Resp BP Pulse Ox 98.2 F 103 H 17 125/67 96 12/26/19 00:45 12/25/19 20:38 12/26/19 01:01 12/26/19 01:01 12/26/19 01:01 - Laboratory Result Diagrams: 12/25/19 21:15 12/25/19 21:15 Laboratory results interpreted by me: 12/25/19 21:15 Sodium 136.1 L Calcium 10.4 H Magnesium 2.4 H - Diagnostic Test Radiology reviewed: Image reviewed, Reports reviewed - EKG Interpretation by Me EKG shows normal: Sinus rhythm Rate: Normal Rhythm: NSR - NSR NL axis [address] elevation or depression repolarization abnormality inferiorly. Discharge - Discharge Clinical Impression: Chest wall pain, Thoracic outlet syndrome, Left Achilles tendinitis Condition: Stable Disposition: HOME, SELF-CARE Instructions: Chest Wall Pain ([facility]), Thoracic Outlet Syndrome ([facility]) Additional Instructions: See your doctor in follow up. Take your medicine as directed. Please return here for chest pain, shortness of breath or other problems or concerns. Call your doctor later today to arrange follow up. Referrals: SANGEETHA MICHAEL PA-C [Primary Care Provider] - Follow up as needed I personally performed the services described in the documentation, reviewed and edited the documentation which was dictated to the scribe in my presence, and it accurately records my words and actions.
[2019-12-26 01:18] VITALS: BP 125/67
--- NOTE | 2019-12-26 16:13 | EKG REPORT ---
SEVERITY:- ABNORMAL ECG - SINUS TACHYCARDIA NONSPECIFIC T ABNORMALITIES, INFERIOR LEADS : Confirmed by: Tanner Montes De Oca MD 26-Dec-2019 16:13:30
== END 2019-12-26 01:49 | disposition home or self-care (01) ==
LOC: ER 20:07
DX: G54.0 Brachial plexus disorders (principal); R07.89 Other chest pain; M25.519 Pain in unspecified shoulder; G89.29 Other chronic pain; M76.62 Achilles tendinitis, left leg; I10 Essential (primary) hypertension; R00.2 Palpitations; R42 Dizziness and giddiness; R63.0 Anorexia; F17.210 Nicotine dependence, cigarettes, uncomplicated
CPT/HCPCS: 36415; 71046; 80053; 83735; 84443; 84484; 85025; 85379; 85610; 85730; 93005; 93010; 99285

== ENCOUNTER → 2020-01-20 | Outpatient (CLI) | payer MEDICARE, OTHER ==
--- NOTE | 2020-01-21 13:26 | RADIOLOGY REPORT (SQ) ---
EXAM DESCRIPTION: MRI RT UPPER JOINT WITHOUT IMAGES COMPLETED DATE/TIME: 01/20/2020 4:20 pm REASON FOR STUDY: M13.811 OTHER SPECIFIED ARTHRITIS, RIGHT SHOULDER M13.811 OTHER SPECIFIED ARTHRIT IS, RIGHT SHOULDER M13.812 OTHER SPECIFIED ARTHRITIS, LEFT SHOULDER COMPARISON: None. TECHNIQUE: Right shoulder images acquired and stored on PACS. Multiplanar imaging to include fat sen sitive sequences such as T1, water sensitive sequences such as FST2/STIR, cartilage sensitive sequenc es such as FSPD/gradient-echo sequences. LIMITATIONS: None. FINDINGS: BONE MARROW AND CORTEX: No worrisome bone lesions or marrow replacement. No occult fractur es. JOINT OR BURSAL EFFUSION: Small amount of subacromial bursal fluid. GLENO-HUMERAL ARTICULATION: Intact. Mild arthropathy. ACROMION AND AC JOINT: Type 1 acromion. Mild -moderate AC joint arthropathy. ROTATOR CUFF AND INTERVAL: Tendinosis. Partial-thickness intrasubstance tear supraspinatus. No rotator interval tear. No rotator interval thickening to suggest adhesive capsulitis. LABRUM AND BICEPS LABRAL COMPLEX: Intact. No labral tear. Intra-articular long-head biceps tendon n ormal. Distal biceps in normal location in bicipital groove. REMAINDER OF LABRUM AND IGHL : No gross tear or paralabral cyst formation. Labral evaluation is less than optimal without joint distention. No thickening of IGHL to suggest adhesive capsulitis. PERIARTICULAR AND ADJACENT SOFT TISSUES: No masses or abnormal nodes. OTHER: No other significant finding. IMPRESSION: 1. Partial-thickness intrasubstance tear supraspinatus. 2. AC and glenohumeral joint arthropathy. TECHNICAL DOCUMENTATION: JOB ID: [id number] 2010 [employer]- All Rights Reserved Reading location - IP/workstation name: [email or web address]
--- NOTE | 2020-01-21 13:29 | RADIOLOGY REPORT (SQ) ---
EXAM DESCRIPTION: MRI LT UPPER JOINT WITHOUT IMAGES COMPLETED DATE/TIME: 01/20/2020 4:20 pm REASON FOR STUDY: M13.812 OTHER SPECIFIED ARTHRITIS, LEFT SHOULDER M13.811 OTHER SPECIFIED ARTHRITI S, RIGHT SHOULDER M13.812 OTHER SPECIFIED ARTHRITIS, LEFT SHOULDER COMPARISON: None. TECHNIQUE: Left shoulder images acquired and stored on PACS. Multiplanar imaging to include fat sens itive sequences such as T1, water sensitive sequences such as FST2/STIR, cartilage sensitive sequence s such as FSPD/gradient-echo sequences. LIMITATIONS: None. FINDINGS: BONE MARROW AND CORTEX: No worrisome bone lesions or marrow replacement. No occult fractur es. JOINT OR BURSAL EFFUSION: No significant joint or bursal fluid. No suggestion of loose bodies. GLENO-HUMERAL ARTICULATION: Intact. Mild arthropathy. ACROMION AND AC JOINT: Type 1 acromion. Mild -moderate AC joint arthropathy. ROTATOR CUFF AND INTERVAL: Partial-thickness articular surface tear supraspinatus. No full-thickness tear. No rotator interval tear. No rotator interval thickening to suggest adhesive capsulitis. LABRUM AND BICEPS LABRAL COMPLEX: Intact. No labral tear. Intra-articular long-head biceps tendon n ormal. Distal biceps in normal location in bicipital groove. REMAINDER OF LABRUM AND IGHL : No gross tear or paralabral cyst formation. Labral evaluation is less than optimal without joint distention. No thickening of IGHL to suggest adhesive capsulitis. PERIARTICULAR AND ADJACENT SOFT TISSUES: No masses or abnormal nodes. OTHER: No other significant finding. IMPRESSION: 1. Partial-thickness articular surface tear of the supraspinatus. 2. AC and glenohumeral joint arthropathy. TECHNICAL DOCUMENTATION: JOB ID: [id number] [employer]- All Rights Reserved Reading location - IP/workstation name: [email or web address]
== END ==
LOC: RAD 15:02
PROVIDERS: ATTEND Anesthesiology
DX: M13.811 Other specified arthritis, right shoulder (principal); M13.812 Other specified arthritis, left shoulder